=== PATIENT | female | born 1980 | race African-American/Black ===

== ENCOUNTER 2017-09-07 10:10 | Emergency (ER) | payer SELFPAY ==
[2017-09-07 10:53] LABS: #Basophils 0.1 thou/uL (0.0-0.2); #Eosinphils 0.1 thou/uL (0.0-0.7); #Lymphocytes 1.8 thou/uL (1.20-3.40); #Monocytes 0.5 thou/uL (0.11-0.59); #Neutrophils 7.1 thou/uL (1.40-6.50); %Basophils 0.6 % (0.0-1.0); %Eosinophils 0.6 % (0.0-10.0); %Lymphocytes 18.5 % (21.0-51.0); %Monocytes 5.7 % (0.0-10.0); Mean Platelet Volume 6.9 fL (7.4-10.4); Red Blood Cell (RBC) Count 4.16 mill/uL (4.20-5.40); White Blood Cell (WBC) Count 9.5 thou/uL (4.8-10.8)
[2017-09-07 11:14] LABS: Bilirubin Negative (Negative); Blood, Urine Negative (Negative); Glucose, Urine (Dipstick) Negative (Negative); Ketone, Urine Negative (Negative); Nitrite Negative (Negative); Protein, Urine (Dipstick) Negative (Neg-Trace)
[2017-09-07 11:16] LABS: ALT (SGPT) 8 U/L (8-55); AST (SGOT) 9 U/L (5-34); Alkaline Phosphatase 51 U/L (40-150); Anion Gap 6 mmol/L (10-20); BUN (Urea Nitrogen) 13 mg/dL (7.0-18.7); Bilirubin, Total 0.5 mg/dL (0.2-1.2); Calc. Creatinine Clearance 0 mL/min (70-130); Calcium 9.3 mg/dL (7.8-10.44); Carbon Dioxide 23 mmol/L (22-29); Chloride 111 mmol/L (98-107); Estimated GFR-MDRD Greater than 90; Globulin 3.8 g/dL (2.4-3.5); Lipase 15 U/L (8-78)
== END 2017-09-07 12:09 | disposition home or self-care (01) ==
LOC: ERS 10:10
DX: O21.9 Vomiting of pregnancy, unspecified (principal); Z3A.01 Less than 8 weeks gestation of pregnancy
CPT/HCPCS: 36415; 80053; 81003; 81025; 83690; 85025; 99284

== ENCOUNTER 2017-10-06 13:13 | Emergency (ER) | payer OTHER, SELFPAY ==
[2017-10-06 14:30] LABS: BHCG - Serum POSITIVE (NEGATIVE); Pregs Control Background? CLEAR/WHITE (CLR/WHITE); Pregs Control Bar Appear? YES (CONTROL BAR)
[2017-10-06 14:31] LABS: #Basophils 0.1 thou/uL (0.0-0.2); #Eosinphils 0.1 thou/uL (0.0-0.7); #Lymphocytes 1.8 thou/uL (1.20-3.40); #Monocytes 0.4 thou/uL (0.11-0.59); #Neutrophils 7.8 thou/uL (1.40-6.50); %Basophils 0.6 % (0.0-1.0); %Eosinophils 0.8 % (0.0-10.0); %Lymphocytes 17.7 % (21.0-51.0); %Monocytes 4.2 % (0.0-10.0); %Neutrophils 76.7 % (42.0-75.0); Hemoglobin 12.1 g/dL (12.0-16.0); Mean Corpuscular HGB CONC 32.4 g/dL (32.0-36.0); Mean Corpuscular Hemoglobin 30.7 pg (27.0-31.0); Mean Corpuscular Volume 94.7 fl (81.0-99.0); Mean Platelet Volume 6.7 fL (7.4-10.4); Platelet Count 274 thou/uL (130-400); RBC Distribution Width 11.9 % (11.5-14.5); Red Blood Cell (RBC) Count 3.95 mill/uL (4.20-5.40); White Blood Cell (WBC) Count 10.1 thou/uL (4.8-10.8)
[2017-10-06 14:36] LABS: Bilirubin Negative (Negative); Blood, Urine Small (Negative); Clarity CLEAR (Clear); Glucose, Urine (Dipstick) Negative (Negative); Leukocyte Negative (Negative); Nitrite Positive (Negative); Protein, Urine (Dipstick) Negative (Neg-Trace); Specific Gravity, Urine 1.007 (1.002-1.036); Urobilinogen 0.2 mg/dL (0.2-1.0); pH, Urine 6.5 (5.0-9.0)
[2017-10-06 14:39] LABS: Bacteria/HPF 1+ HPF (None Seen); Hyaline Casts/LPF 0-3 HYALINE CAST LPF (0-3 Hyaline); RBC/HPF None Seen HPF (0-3); Squamous Epithelial 0-3 HPF (0-3); WBC/HPF 0-3 HPF (0-3)
--- NOTE | 2017-10-06 15:35 | ULT ---
PELVIC ULTRASOUND WITH DOPPLER (Transabdominal pelvic ultrasound with doppler imaging) (Ulrich scale, color flow and spectral doppler) 10/06/17 FINDINGS: The uterus measures 12 x 7 x 8 cm with a single intrauterine gestational sac. The gestational sac kyara meter measures 3.42 cm and the crown-rump length measures 1.21 cm. Measurements correspond to an kenrick mated gestational age of 8 weeks, 0 days. pole is present. No heart tones are identified. The right ovary is not visualized. The left ovary is visualized and appears normal with the presence of flow. No adnexal mass or free fluid in the cul-de-sac is identified. IMPRESSION: Findings are suspicious for first trimester demise. Discussed over the telephone with ER physician Dr. Peewee Salamanca at 2:50 p.m. POS: ELEAZAR
[2017-10-06] MEDS ORDERED: cefTRIAXone\\ROCEPHIN 500 MG VIAL ONE (16:02)
[2017-10-06] MEDS ORDERED: Lidocaine 1% PF 5 ML VIAL ONE (16:02)
== END 2017-10-06 16:36 | disposition home or self-care (01) ==
LOC: ERS 13:13
DX: O02.1 Missed abortion (principal); N39.0 Urinary tract infection, site not specified
CPT/HCPCS: 36415; 76856; 81003; 81015; 84702; 84703; 85025; 93976; 96372; J0696; J2001

== ENCOUNTER 2022-04-26 17:57 | Emergency (ER) | payer OTHER, SELFPAY | END 2022-04-26 18:52 | disposition home or self-care (01) | LOC: ERS 17:57 | DX: R05.9 Cough, unspecified (principal); Z20.822 Contact with and (suspected) exposure to COVID-19 | CPT/HCPCS: U0003; U0005 ==